=== PATIENT | male | born 1935 | race Caucasian/White ===

== ENCOUNTER 2017-06-24 18:16 | Emergency (ER) | payer MEDICARE, OTHER ==
[~2017-06-24] VITALS: Ht 170.2 cm; Wt 75.8 kg
[~2017-06-24 18:16] MED LIST: ACID1TAB15 PO; BISA10SU61 RC; CLOP75 PO; FAMO20 PO; FENO48TA15 PO; FENO54TA5 PO; FOLI1TAB15 PO; FURO20 PO; GUAI100L34 PO; LANTUS INSULIN SQ; METO25 PO; ONDA4 PO; [UNRECOGNIZED DRUG - OTHER]
[2017-06-24 18:47] LABS: GLUCOSE,POINT OF CARE 187 MG/DL (70-110)
[2017-06-24] MEDS ORDERED: MEMA5 PO (18:47)
[2017-06-24] MEDS ORDERED: INSU100V SQ (18:47)
[2017-06-24] MEDS ORDERED: PANT40TA PO (18:47)
[2017-06-24] MEDS ORDERED: LISI2.5T2 PO (18:47)
[2017-06-24] MEDS ORDERED: DIGO125T71 PO (18:47)
[2017-06-24] MEDS ORDERED: SODI15OR PO (18:47)
[2017-06-24] MEDS ORDERED: CARV3.1262 PO (18:47)
[2017-06-24] MEDS ORDERED: INSLAN SQ (18:47)
[2017-06-24] MEDS ORDERED: BUME0.5T11 PO (18:47)
[2017-06-24 19:27] LABS: BASOPHILS % (AUTO) 0.6 % (0.0-2.0); EOSINOPHILS % (AUTO) 5.7 % (1.0-6.0); HEMATOCRIT 38.5 % (41-53); HEMOGLOBIN 12.5 g/dL (13.5-17.5); LYMPHOCYTES # (AUTO) 1.5 K/uL (1.0-4.8); LYMPHOCYTES % (AUTO) 24.9 % (22.0-44.0); MEAN CORPUSCULAR HEMOGLOBIN 29.5 pg (26.0-34.0); MEAN CORPUSCULAR HGB CONC 32.6 G/dL (31.0-37.0); MEAN CORPUSCULAR VOLUME 91 fL (80-100); MONOCYTES # (AUTO) 0.8 K/uL (0.1-1.0); MONOCYTES % (AUTO) 13.2 % (2.0-9.0); NEUTROPHILS # (AUTO) 3.4 K/uL (1.8-7.7); NEUTROPHILS % (AUTO) 55.6 % (40.0-70.0); PLATELET COUNT (AUTO) 151 K/uL (150-450); RED BLOOD CELL COUNT(AUTO) 4.24 MIL/uL (4.50-5.90); RED CELL DISTRIBUTION WIDTH 16.2 % (11.5-14.5); WHITE BLOOD COUNT (AUTO) 6.1 K/uL (4.5-11.0)
[2017-06-24 19:33] LABS: ANION GAP 8 mmol/L (8-16); CALCIUM, TOTAL 8.5 mg/dL (8.8-10.5); CARBON DIOXIDE 25 mmol/L (22-29); CHLORIDE 104 mmol/L (98-107); CREATININE 2.19 mg/dL (0.60-1.30); GLOMERULAR FILTR. RATE CALC 29 mL/min (>60); POTASSIUM 5.9 mmol/L (3.5-5.1); SODIUM SERUM 137 mmol/L (136-145); UREA NITROGEN, BLOOD 57 mg/dL (7-18)
[2017-06-24 19:40] LABS: ALANINE AMINOTRANSFERASE 13 U/L (12-78); ASPARTATE AMINOTRANSFERASE 17 U/L (15-37); BILIRUBIN,TOTAL 0.5 mg/dL (0.1-1.0); CREATINE KINASE, TOTAL 30 U/L (39-308)
[2017-06-24 19:41] LABS: ALBUMIN 3.1 g/dL (3.4-5.0)
[2017-06-24 19:42] LABS: DIGOXIN < 0.20 ng/mL (0.90-2.00)
[2017-06-24 19:55] LABS: B-TYPE NATRIURETIC PEPTIDE 204 pg/mL (0-100)
[2017-06-24] MEDS ORDERED: TRIAMCINOLONE 0.1% 15 GM CREAM TP ONE (21:15)
[2017-06-24] MEDS ORDERED: DiphenhydrAMINE HCL 50 MG/ML VIAL IVP ONE (21:15)
[2017-06-24] MEDS ORDERED: SODIUM POLYSTYRENE SULFONATE 15 GM/60 ML SUSPENSION BOTTLE PO ONE (21:15)
[2017-06-24 23:01] LABS: APPEARANCE,URINE CLEAR (CLEAR); GLUCOSE, URINE (UA) NEGATIVE (NEGATIVE); KETONES,URINE NEGATIVE (NEGATIVE); LEUKOCYTE ESTERASE ,URINE NEGATIVE (NEGATIVE); OCCULT BLOOD,URINE NEGATIVE (NEGATIVE); PH,URINE 5.5 (5.0-8.0); PROTEIN,URINE POS 1+ (NEGATIVE)
[2017-06-24 23:04] LABS: ADD UA MICROSCOPIC NO
[2017-06-24 23:54] VITALS: BP 142/73
== END 2017-06-25 03:02 | disposition home or self-care (01) ==
LOC: EMS 18:17
DX: S00.03XA Contusion of scalp, initial encounter (principal); E11.65 Type 2 diabetes mellitus with hyperglycemia; E87.5 Hyperkalemia; I13.0 Hypertensive heart and chronic kidney disease with heart failure and stage 1 through stage 4 chronic kidney disease, or unspecified chronic kidney disease; E11.22 Type 2 diabetes mellitus with diabetic chronic kidney disease; N18.9 Chronic kidney disease, unspecified; I50.9 Heart failure, unspecified; I48.91 Unspecified atrial fibrillation; E78.00 Pure hypercholesterolemia, unspecified; Z79.4 Long term (current) use of insulin; Z86.73 Personal history of transient ischemic attack (TIA), and cerebral infarction without residual deficits; W18.30XA Fall on same level, unspecified, initial encounter; Y93.89 Activity, other specified; Y92.89 Other specified places as the place of occurrence of the external cause; Y99.8 Other external cause status
CPT/HCPCS: 70450; 82962; 93005; 99285; J1200

== ENCOUNTER 2017-07-30 17:47 | Inpatient (IN) | payer MEDICARE, OTHER ==
[~2017-07-30] VITALS: Ht 172.7 cm; Wt 85.0 kg
[~2017-07-30 17:47] MED LIST changes: -ACID1TAB15 PO; +BUME0.5T11 PO; +CARV3.1262 PO; -CLOP75 PO; +DIGO125T71 PO; -FAMO20 PO; -FENO48TA15 PO; -FENO54TA5 PO; -FOLI1TAB15 PO; -FURO20 PO; +INSLAN SQ; +INSU100V SQ; -LANTUS INSULIN SQ; +LISI2.5T2 PO; +MEMA5 PO; -METO25 PO; +PANT40TA PO; +SODI15OR PO; -[UNRECOGNIZED DRUG - OTHER]
[2017-07-30] MEDS ORDERED: ASCO500 PO (18:11)
[2017-07-30 18:46] LABS: EOSINOPHILS % (AUTO) 0.8 % (1.0-6.0); HEMATOCRIT 37.4 % (41-53); HEMOGLOBIN 12.2 g/dL (13.5-17.5); LYMPHOCYTES % (AUTO) 6.9 % (22.0-44.0); MEAN CORPUSCULAR HGB CONC 32.7 G/dL (31.0-37.0); MEAN CORPUSCULAR VOLUME 89 fL (80-100); MONOCYTES % (AUTO) 6.8 % (2.0-9.0); NEUTROPHILS # (AUTO) 12.6 K/uL (1.8-7.7); PLATELET COUNT (AUTO) 160 K/uL (150-450); RED BLOOD CELL COUNT(AUTO) 4.22 MIL/uL (4.50-5.90); RED CELL DISTRIBUTION WIDTH 16.6 % (11.5-14.5); WHITE BLOOD COUNT (AUTO) 14.7 K/uL (4.5-11.0)
[2017-07-30 18:49] LABS: NEUTROPHILS % (AUTO) 85.5 % (40.0-70.0)
[2017-07-30 18:59] LABS: ANION GAP 11 mmol/L (8-16); CALCIUM, TOTAL 8.8 mg/dL (8.8-10.5); CARBON DIOXIDE 21 mmol/L (22-29); CHLORIDE 101 mmol/L (98-107); CREATININE 2.79 mg/dL (0.60-1.30); GLOMERULAR FILTR. RATE CALC 22 mL/min (>60); SODIUM SERUM 133 mmol/L (136-145); UREA NITROGEN, BLOOD 87 mg/dL (7-18)
[2017-07-30 19:00] LABS: INR 1.5 (0.9-1.1)
[2017-07-30 19:06] LABS: ALANINE AMINOTRANSFERASE 15 U/L (12-78); ALBUMIN 2.6 g/dL (3.4-5.0); ASPARTATE AMINOTRANSFERASE 21 U/L (15-37); BILIRUBIN,TOTAL 1.2 mg/dL (0.1-1.0); CREATINE KINASE, TOTAL 43 U/L (39-308); DIGOXIN 0.35 ng/mL (0.90-2.00); TOTAL PROTEIN, SERUM 8.1 g/dL (6.4-8.2)
[2017-07-30 19:13] LABS: B-TYPE NATRIURETIC PEPTIDE 437 pg/mL (0-100)
[2017-07-30] MEDS ORDERED: SODIUM POLYSTYRENE SULFONATE 15 GM/60 ML SUSPENSION BOTTLE PO ONE (19:30)
[2017-07-30] MEDS ORDERED: INSULIN REGULAR, HUMAN 100 UNITS/ML IVP ONE (19:30)
[2017-07-30] MEDS ORDERED: ALBUTEROL SULFATE 2.5 MG/0.5 ML NEB SOLUTION NEB ONE (19:30)
[2017-07-30] MEDS ORDERED: SODIUM BICARBONATE [ADULT] 8.4% 50 MEQ/50 ML SYRINGE IVP ONE (19:30)
[2017-07-30 19:59] LABS: APPEARANCE,URINE CLEAR (CLEAR); GLUCOSE, URINE (UA) NEGATIVE (NEGATIVE); KETONES,URINE NEGATIVE (NEGATIVE); LEUKOCYTE ESTERASE ,URINE NEGATIVE (NEGATIVE); OCCULT BLOOD,URINE NEGATIVE (NEGATIVE); PROTEIN,URINE TRACE (NEGATIVE)
[2017-07-30 20:02] LABS: ADD UA MICROSCOPIC NO
[2017-07-30] MEDS ORDERED: 0.9% SODIUM CHLORIDE 5 ML NEB SOLUTION NEB ONE (20:36)
[2017-07-30] MEDS ORDERED: LEVOFLOXACIN 750 MG/D5% WATER 150 ML IV ONE (21:30)
[2017-07-30] MEDS ORDERED: VANCOMYCIN HCL 1 GM/D5% WATER 200 ML IV ONE (21:30)
[2017-07-30] MEDS ORDERED: DEXTROSE 50%-WATER 25 GM/50 ML SYRINGE IVP PRN (22:15)
[2017-07-30] MEDS ORDERED: ACETAMINOPHEN 325 MG TABLET PO PRN (22:15)
[2017-07-30] MEDS ORDERED: *CLINICAL-LEVOFLOXACIN IVPB DOSING CLINICAL ONE ×2 (22:15)
[2017-07-30] MEDS ORDERED: ALBUTEROL SULFATE 2.5 MG/0.5 ML NEB SOLUTION NEB PRN (22:15)
[2017-07-30] MEDS ORDERED: BISACODYL 10 MG RECTAL RECTAL SUPPOSITORY PR PRN (22:15)
[2017-07-30 22:52] VITALS: BP 128/60
[2017-07-30] MEDS ORDERED: PERMETHRIN 5% 60 GM CREAM TP ONE (23:00)
[2017-07-30] MEDS: OxyCODONE HCL/ACETAMINOPHEN 5-325 MG TABLET PO PRN (23:22)
[2017-07-30] MEDS ORDERED: VANCOMYCIN HCL 1 GM/D5% WATER 200 ML IV PRN (23:30)
[2017-07-31] MEDS ORDERED: SODIUM CHLORIDE 0.9% 250 ML IV ONE (02:58)
[2017-07-31] MEDS ORDERED: VANCOMYCIN HCL 500 MG in DEXTROSE 5%-WATER 100 ML IV ONE (03:00)
[2017-07-31 03:53] VITALS: BP 109/68
[2017-07-31 06:18] LABS: EOSINOPHILS % (AUTO) 0.4 % (1.0-6.0); HEMATOCRIT 36.3 % (41-53); HEMOGLOBIN 11.7 g/dL (13.5-17.5); LYMPHOCYTES # (AUTO) 0.8 K/uL (1.0-4.8); LYMPHOCYTES % (AUTO) 5.7 % (22.0-44.0); MEAN CORPUSCULAR HEMOGLOBIN 28.8 pg (26.0-34.0); MEAN CORPUSCULAR HGB CONC 32.3 G/dL (31.0-37.0); MEAN CORPUSCULAR VOLUME 89 fL (80-100); MONOCYTES % (AUTO) 7.3 % (2.0-9.0); NEUTROPHILS # (AUTO) 11.5 K/uL (1.8-7.7); PLATELET COUNT (AUTO) 163 K/uL (150-450); RED BLOOD CELL COUNT(AUTO) 4.06 MIL/uL (4.50-5.90); RED CELL DISTRIBUTION WIDTH 16.7 % (11.5-14.5); WHITE BLOOD COUNT (AUTO) 13.3 K/uL (4.5-11.0)
[2017-07-31 06:21] LABS: CALCIUM, TOTAL 8.5 mg/dL (8.8-10.5); CREATININE 2.95 mg/dL (0.60-1.30); POTASSIUM 5.6 mmol/L (3.5-5.1)
[2017-07-31] MEDS: INSULIN ASPART 100 UNITS/ML SQ PRN ×4 (06:30→21:00)
[2017-07-31 07:01] LABS: NEUTROPHILS % (AUTO) 86.6 % (40.0-70.0)
[2017-07-31 07:02] LABS: GLUCOSE COMMENT 1 Received Meds; GLUCOSE,POINT OF CARE 363 MG/DL (70-110)
[2017-07-31 07:38] VITALS: BP 133/80
[2017-07-31 08:29] LABS: RBC MORPHOLOGY COMMENT NORMAL RBC MORPH
[2017-07-31] MEDS: VITAMIN B COMP/VIT C/FOLIC ACID CAPSULE PO SCH (08:33)
[2017-07-31] MEDS: ASPIRIN 81 MG CHEWABLE TABLET PO SCH (08:33)
[2017-07-31] MEDS: DOCUSATE SODIUM 100 MG CAPSULE PO SCH ×2 (08:33→20:55)
[2017-07-31] MEDS: PANTOPRAZOLE SODIUM 40 MG DR TABLET PO SCH (08:33)
[2017-07-31] MEDS: MEMANTINE HCL 5 MG TABLET PO SCH ×2 (08:33→20:56)
[2017-07-31] MEDS: DIGOXIN 125 MCG TABLET PO SCH (08:33)
[2017-07-31] MEDS: HEPARIN SODIUM,PORCINE 5,000 UNITS/ML VIAL SQ SCH ×2 (08:34→20:55)
[2017-07-31] MEDS: OxyCODONE HCL/ACETAMINOPHEN 5-325 MG TABLET PO PRN (08:34)
[2017-07-31] MEDS ORDERED: SODIUM POLYSTYRENE SULFONATE 15 GM/60 ML SUSPENSION BOTTLE PR ONE (10:45)
[2017-07-31 11:02] VITALS: BP 119/65
[2017-07-31] MEDS ORDERED: SODIUM CHLORIDE 0.9% 1,000 ML IV ONE (13:15)
[2017-07-31 14:40] VITALS: BP 116/59
[2017-07-31 20:45] VITALS: BP 135/90
[2017-07-31] MEDS: ATORVASTATIN CALCIUM 20 MG TABLET PO SCH (20:55)
[2017-07-31] MEDS: CARVEDILOL 3.125 MG TABLET PO SCH (20:56)
[2017-08-01 00:59] VITALS: BP 134/55
[2017-08-01 04:37] VITALS: BP 134/80
[2017-08-01] MEDS: INSULIN ASPART 100 UNITS/ML SQ PRN ×4 (05:55→20:48)
[2017-08-01] MEDS: OxyCODONE HCL/ACETAMINOPHEN 5-325 MG TABLET PO PRN ×4 (05:58→23:29)
[2017-08-01 07:06] LABS: CALCIUM, TOTAL 8.5 mg/dL (8.8-10.5); CREATININE 2.54 mg/dL (0.60-1.30); PHOSPHORUS 4.1 mg/dL (2.5-4.9); POTASSIUM 4.1 mmol/L (3.5-5.1)
[2017-08-01 07:57] VITALS: BP 113/65
[2017-08-01] MEDS: DOCUSATE SODIUM 100 MG CAPSULE PO SCH ×2 (08:18→20:47)
[2017-08-01] MEDS: PANTOPRAZOLE SODIUM 40 MG DR TABLET PO SCH (08:19)
[2017-08-01] MEDS: VITAMIN B COMP/VIT C/FOLIC ACID CAPSULE PO SCH (08:19)
[2017-08-01] MEDS: MEMANTINE HCL 5 MG TABLET PO SCH ×2 (08:19→20:47)
[2017-08-01] MEDS: CARVEDILOL 3.125 MG TABLET PO SCH ×2 (08:19→20:47)
[2017-08-01] MEDS: DIGOXIN 125 MCG TABLET PO SCH (08:19)
[2017-08-01] MEDS: HEPARIN SODIUM,PORCINE 5,000 UNITS/ML VIAL SQ SCH ×2 (09:00→20:34)
[2017-08-01] MEDS ORDERED: SODIUM CHLORIDE 0.9% 500 ML IV ONE (09:45)
[2017-08-01] MEDS ORDERED: ERGOCALCIFEROL (VIT D2) 50,000 UNITS CAPSULE PO SCH (10:00)
[2017-08-01] MEDS: IRON SUCROSE COMPLEX 100 MG in SODIUM CHLORIDE 0.9% 100 ML IV SCH (10:31)
[2017-08-01 11:37] VITALS: BP 119/79
[2017-08-01] MEDS: ASPIRIN 81 MG CHEWABLE TABLET PO SCH (12:29)
[2017-08-01] MEDS: TAMSULOSIN HCL 0.4 MG CAPSULE PO SCH ×4 (12:32→21:00)
[2017-08-01 14:43] LABS: GLUCOSE COMMENT 1 Received Meds; GLUCOSE,POINT OF CARE 223 MG/DL (70-110)
[2017-08-01 14:43] LABS: GLUCOSE,POINT OF CARE 256 MG/DL (70-110)
[2017-08-01 14:44] LABS: GLUCOSE COMMENT 1 Post Meal; GLUCOSE COMMENT 2 Stat Lab Glu Request; GLUCOSE,POINT OF CARE 236 MG/DL (70-110)
[2017-08-01 14:44] LABS: GLUCOSE COMMENT 1 Received Meds; GLUCOSE,POINT OF CARE 192 MG/DL (70-110)
[2017-08-01 14:44] LABS: GLUCOSE COMMENT 1 Received Meds; GLUCOSE,POINT OF CARE 227 MG/DL (70-110)
[2017-08-01 15:48] VITALS: BP 128/64
[2017-08-01 16:53] LABS: APPEARANCE,UNSPUN,BODY FLUID CLOUDY (CLEAR); COLOR,BODY FLUID YELLOW (LT YELLOW)
[2017-08-01 16:54] LABS: OTHER CELLS,BODY FLUID 4
[2017-08-01 16:55] LABS: PH, BODY FLUID 8
[2017-08-01] MEDS ORDERED: FINASTERIDE 5 MG TABLET PO ONE (17:45)
[2017-08-01 19:59] VITALS: BP 121/66
[2017-08-01] MEDS: MUPIROCIN CALCIUM 2% 22 GM OINTMENT NASAL SCH (20:47)
[2017-08-01] MEDS: ATORVASTATIN CALCIUM 20 MG TABLET PO SCH (20:47)
[2017-08-01] MEDS ORDERED: SODIUM CHLORIDE 0.9% 250 ML IV ONE (21:03)
[2017-08-01] MEDS ORDERED: LEVOFLOXACIN 750 MG/D5% WATER 150 ML IV SCH (22:00)
[2017-08-02] VITALS (7 sets, daily range): BP systolic 108–134; BP diastolic 53–84
[2017-08-02 05:16] LABS: BASOPHILS # (AUTO) 0.02 K/uL (0.00-0.20); BASOPHILS % (AUTO) 0.3 % (0.0-2.0); EOSINOPHILS # (AUTO) 0.18 K/uL (0.00-0.70); EOSINOPHILS % (AUTO) 2.09 % (1.0-6.0); HEMATOCRIT 35.2 % (41-53); HEMOGLOBIN 11.5 g/dL (13.5-17.5); LYMPHOCYTES # (AUTO) 0.9 K/uL (1.0-4.8); LYMPHOCYTES % (AUTO) 10.4 % (22.0-44.0); MEAN CORPUSCULAR HEMOGLOBIN 28.8 pg (26.0-34.0); MEAN CORPUSCULAR HGB CONC 32.6 G/dL (31.0-37.0); MEAN CORPUSCULAR VOLUME 88 fL (80-100); MONOCYTES # (AUTO) 0.8 K/uL (0.1-1.0); MONOCYTES % (AUTO) 9.2 % (2.0-9.0); NEUTROPHILS # (AUTO) 6.7 K/uL (1.8-7.7); PLATELET COUNT (AUTO) 153 K/uL (150-450); RED BLOOD CELL COUNT(AUTO) 3.98 MIL/uL (4.50-5.90); RED CELL DISTRIBUTION WIDTH 16.7 % (11.5-14.5); WHITE BLOOD COUNT (AUTO) 8.6 K/uL (4.5-11.0)
[2017-08-02 05:31] LABS: CALCIUM, TOTAL 8.1 mg/dL (8.8-10.5); CREATININE 2.3 mg/dL (0.60-1.30); DIGOXIN 0.71 ng/mL (0.90-2.00)
[2017-08-02] MEDS: INSULIN ASPART 100 UNITS/ML SQ PRN ×3 (06:40→22:21)
[2017-08-02 07:43] LABS: GLUCOSE COMMENT 1 Received Meds; GLUCOSE,POINT OF CARE 223 MG/DL (70-110)
[2017-08-02 07:43] LABS: GLUCOSE COMMENT 1 Received Meds; GLUCOSE,POINT OF CARE 197 MG/DL (70-110)
[2017-08-02 07:43] LABS: GLUCOSE COMMENT 1 Received Meds; GLUCOSE,POINT OF CARE 244 MG/DL (70-110)
[2017-08-02] MEDS: MUPIROCIN CALCIUM 2% 22 GM OINTMENT NASAL SCH ×2 (08:00→20:29)
[2017-08-02] MEDS: DOCUSATE SODIUM 100 MG CAPSULE PO SCH ×2 (08:00→20:29)
[2017-08-02] MEDS: VANCOMYCIN HCL 750 MG in DEXTROSE 5%-WATER 150 ML IV SCH (08:00)
[2017-08-02] MEDS: ASPIRIN 81 MG CHEWABLE TABLET PO SCH (08:00)
[2017-08-02] MEDS: MEMANTINE HCL 5 MG TABLET PO SCH ×2 (08:01→20:29)
[2017-08-02] MEDS: PANTOPRAZOLE SODIUM 40 MG DR TABLET PO SCH (08:01)
[2017-08-02] MEDS: OxyCODONE HCL/ACETAMINOPHEN 5-325 MG TABLET PO PRN ×4 (08:01→22:23)
[2017-08-02] MEDS: VITAMIN B COMP/VIT C/FOLIC ACID CAPSULE PO SCH (08:01)
[2017-08-02] MEDS: TAMSULOSIN HCL 0.4 MG CAPSULE PO SCH ×3 (08:02→21:00)
[2017-08-02] MEDS: HEPARIN SODIUM,PORCINE 5,000 UNITS/ML VIAL SQ SCH ×2 (08:02→20:25)
[2017-08-02] MEDS: CARVEDILOL 3.125 MG TABLET PO SCH ×2 (08:02→21:00)
[2017-08-02 14:23] LABS: TOTAL PROTEIN,BODY FLUID,REF 2.8 g/dL
[2017-08-02 14:28] LABS: GLUCOSE COMMENT 1 Received Meds; GLUCOSE,POINT OF CARE 339 MG/DL (70-110)
[2017-08-02] MEDS: IRON SUCROSE COMPLEX 100 MG in SODIUM CHLORIDE 0.9% 100 ML IV SCH (14:43)
[2017-08-02] MEDS: ATORVASTATIN CALCIUM 20 MG TABLET PO SCH (20:29)
[2017-08-03 01:02] LABS: GLUCOSE COMMENT 1 Received Meds; GLUCOSE,POINT OF CARE 272 MG/DL (70-110)
[2017-08-03] MEDS: OxyCODONE HCL/ACETAMINOPHEN 5-325 MG TABLET PO PRN ×4 (04:24→23:45)
[2017-08-03 04:27] VITALS: BP 122/76
[2017-08-03 06:15] LABS: BASOPHILS % (AUTO) 0.2 % (0.0-2.0); EOSINOPHILS % (AUTO) 3.2 % (1.0-6.0); HEMATOCRIT 35.9 % (41-53); HEMOGLOBIN 11.7 g/dL (13.5-17.5); LYMPHOCYTES % (AUTO) 10.3 % (22.0-44.0); MEAN CORPUSCULAR HEMOGLOBIN 28.8 pg (26.0-34.0); MEAN CORPUSCULAR HGB CONC 32.4 G/dL (31.0-37.0); MEAN CORPUSCULAR VOLUME 89 fL (80-100); MONOCYTES % (AUTO) 10.9 % (2.0-9.0); NEUTROPHILS % (AUTO) 75.4 % (40.0-70.0); PLATELET COUNT (AUTO) 166 K/uL (150-450); RED BLOOD CELL COUNT(AUTO) 4.05 MIL/uL (4.50-5.90); RED CELL DISTRIBUTION WIDTH 16.7 % (11.5-14.5); WHITE BLOOD COUNT (AUTO) 9.3 K/uL (4.5-11.0)
[2017-08-03 07:10] LABS: ALBUMIN 2.2 g/dL (3.4-5.0); BILIRUBIN,TOTAL 1.1 mg/dL (0.1-1.0); CALCIUM, TOTAL 8.5 mg/dL (8.8-10.5); CREATININE 2.66 mg/dL (0.60-1.30); MAGNESIUM 1.8 mg/dL (1.80-2.40); POTASSIUM 3.9 mmol/L (3.5-5.1); TOTAL PROTEIN, SERUM 7.6 g/dL (6.4-8.2)
[2017-08-03 07:33] LABS: GLUCOSE COMMENT 1 Received Meds; GLUCOSE,POINT OF CARE 279 MG/DL (70-110)
[2017-08-03] MEDS: PANTOPRAZOLE SODIUM 40 MG DR TABLET PO SCH (07:49)
[2017-08-03] MEDS: DOCUSATE SODIUM 100 MG CAPSULE PO SCH ×2 (07:49→20:21)
[2017-08-03] MEDS: MUPIROCIN CALCIUM 2% 22 GM OINTMENT NASAL SCH ×2 (07:49→20:19)
[2017-08-03] MEDS: VITAMIN B COMP/VIT C/FOLIC ACID CAPSULE PO SCH (07:49)
[2017-08-03] MEDS: MEMANTINE HCL 5 MG TABLET PO SCH ×2 (07:50→20:19)
[2017-08-03] MEDS: TAMSULOSIN HCL 0.4 MG CAPSULE PO SCH ×3 (07:50→20:19)
[2017-08-03] MEDS: CARVEDILOL 3.125 MG TABLET PO SCH ×2 (07:50→20:19)
[2017-08-03] MEDS: IRON SUCROSE COMPLEX 100 MG in SODIUM CHLORIDE 0.9% 100 ML IV SCH (07:51)
[2017-08-03] MEDS: HEPARIN SODIUM,PORCINE 5,000 UNITS/ML VIAL SQ SCH ×2 (07:51→20:17)
[2017-08-03 09:06] VITALS: BP 116/54
[2017-08-03] MEDS: VANCOMYCIN HCL 750 MG in DEXTROSE 5%-WATER 150 ML IV SCH (10:16)
[2017-08-03 11:30] VITALS: BP 126/59
[2017-08-03] MEDS: LIDOCAINE HCL 5% TRANSDERMAL PATCH TD SCH (15:10)
[2017-08-03 15:44] VITALS: BP 124/66
[2017-08-03] MEDS: INSULIN ASPART 100 UNITS/ML SQ PRN ×2 (18:51→20:44)
[2017-08-03 20:06] VITALS: BP 131/81
[2017-08-03] MEDS: ATORVASTATIN CALCIUM 20 MG TABLET PO SCH (20:19)
[2017-08-03] MEDS: -LIDODERM PATCH NOTE- MISC SCH ×2 (20:20)
[2017-08-03 23:29] VITALS: BP 124/73
[2017-08-04 04:52] VITALS: BP 117/63
[2017-08-04 05:08] LABS: GLUCOSE,POINT OF CARE 124 MG/DL (70-110)
[2017-08-04 05:08] LABS: GLUCOSE COMMENT 1 Received Meds; GLUCOSE,POINT OF CARE 263 MG/DL (70-110)
[2017-08-04 05:08] LABS: GLUCOSE COMMENT 1 Received Meds; GLUCOSE,POINT OF CARE 302 MG/DL (70-110)
[2017-08-04 05:19] LABS: GLUCOSE COMMENT 1 Received Meds; GLUCOSE,POINT OF CARE 323 MG/DL (70-110)
[2017-08-04] MEDS: OxyCODONE HCL/ACETAMINOPHEN 5-325 MG TABLET PO PRN ×2 (06:44→23:12)
[2017-08-04] MEDS: INSULIN ASPART 100 UNITS/ML SQ PRN ×3 (06:44→21:32)
[2017-08-04 07:28] LABS: ALBUMIN 2.1 g/dL (3.4-5.0); BILIRUBIN,TOTAL 1.2 mg/dL (0.1-1.0); CALCIUM, TOTAL 8.3 mg/dL (8.8-10.5); CREATININE 3.04 mg/dL (0.60-1.30); MAGNESIUM 1.7 mg/dL (1.80-2.40); POTASSIUM 4.1 mmol/L (3.5-5.1); TOTAL PROTEIN, SERUM 7.2 g/dL (6.4-8.2)
[2017-08-04 07:30] VITALS: BP 140/98
[2017-08-04] MEDS: VANCOMYCIN HCL 750 MG in DEXTROSE 5%-WATER 150 ML IV SCH (08:34)
[2017-08-04] MEDS: DOCUSATE SODIUM 100 MG CAPSULE PO SCH ×2 (08:39→21:17)
[2017-08-04] MEDS: MUPIROCIN CALCIUM 2% 22 GM OINTMENT NASAL SCH ×2 (08:39→21:17)
[2017-08-04] MEDS: HEPARIN SODIUM,PORCINE 5,000 UNITS/ML VIAL SQ SCH ×2 (08:40→21:18)
[2017-08-04] MEDS: TAMSULOSIN HCL 0.4 MG CAPSULE PO SCH ×3 (08:40→21:17)
[2017-08-04] MEDS: LIDOCAINE HCL 5% TRANSDERMAL PATCH TD SCH (08:40)
[2017-08-04] MEDS: VITAMIN B COMP/VIT C/FOLIC ACID CAPSULE PO SCH (08:40)
[2017-08-04] MEDS: PANTOPRAZOLE SODIUM 40 MG DR TABLET PO SCH (08:40)
[2017-08-04] MEDS: CARVEDILOL 3.125 MG TABLET PO SCH ×2 (08:41→21:17)
[2017-08-04] MEDS: MEMANTINE HCL 5 MG TABLET PO SCH ×2 (08:41→21:18)
[2017-08-04] MEDS: DIGOXIN 125 MCG TABLET PO SCH (08:41)
[2017-08-04 08:42] LABS: BASOPHILS % (AUTO) 0.3 % (0.0-2.0); EOSINOPHILS % (AUTO) 2.1 % (1.0-6.0); LYMPHOCYTES % (AUTO) 11.2 % (22.0-44.0); MEAN CORPUSCULAR HEMOGLOBIN 28.5 pg (26.0-34.0); MEAN CORPUSCULAR HGB CONC 32.4 G/dL (31.0-37.0); MEAN CORPUSCULAR VOLUME 88 fL (80-100); MONOCYTES % (AUTO) 11.9 % (2.0-9.0); NEUTROPHILS # (AUTO) 6.4 K/uL (1.8-7.7); NEUTROPHILS % (AUTO) 74.5 % (40.0-70.0); PLATELET COUNT (AUTO) 151 K/uL (150-450); RED BLOOD CELL COUNT(AUTO) 3.87 MIL/uL (4.50-5.90); RED CELL DISTRIBUTION WIDTH 16.9 % (11.5-14.5); WHITE BLOOD COUNT (AUTO) 8.6 K/uL (4.5-11.0)
[2017-08-04] MEDS: IRON SUCROSE COMPLEX 100 MG in SODIUM CHLORIDE 0.9% 100 ML IV SCH (11:29)
[2017-08-04 11:54] VITALS: BP 116/58
[2017-08-04] MEDS: SODIUM CHLORIDE 0.9% 1,000 ML IV SCH (12:15)
[2017-08-04 15:31] VITALS: BP 112/68
[2017-08-04 20:16] VITALS: BP 137/64
[2017-08-04] MEDS: ATORVASTATIN CALCIUM 20 MG TABLET PO SCH (21:18)
[2017-08-04] MEDS: -LIDODERM PATCH NOTE- MISC SCH ×2 (21:33)
[2017-08-04 23:49] VITALS: BP 123/71
[2017-08-05 03:52] LABS: GLUCOSE,POINT OF CARE 142 MG/DL (70-110)
[2017-08-05 03:53] LABS: GLUCOSE,POINT OF CARE 212 MG/DL (70-110)
[2017-08-05 03:53] LABS: GLUCOSE COMMENT 1 Received Meds; GLUCOSE,POINT OF CARE 176 MG/DL (70-110)
[2017-08-05 03:53] LABS: GLUCOSE COMMENT 1 Received Meds; GLUCOSE,POINT OF CARE 218 MG/DL (70-110)
[2017-08-05] MEDS: SODIUM CHLORIDE 0.9% 1,000 ML IV SCH (04:27)
[2017-08-05 05:36] VITALS: BP 120/70
[2017-08-05 06:38] LABS: GLUCOSE,POINT OF CARE 133 MG/DL (70-110)
[2017-08-05 07:16] LABS: CREATININE 3.92 mg/dL (0.60-1.30); POTASSIUM 4.3 mmol/L (3.5-5.1)
[2017-08-05 08:02] VITALS: BP 126/67
[2017-08-05] MEDS: HEPARIN SODIUM,PORCINE 5,000 UNITS/ML VIAL SQ SCH ×2 (09:00→20:17)
[2017-08-05] MEDS: TAMSULOSIN HCL 0.4 MG CAPSULE PO SCH ×3 (09:28→21:00)
[2017-08-05] MEDS: DOCUSATE SODIUM 100 MG CAPSULE PO SCH ×2 (09:28→20:16)
[2017-08-05] MEDS: CARVEDILOL 3.125 MG TABLET PO SCH ×2 (09:28→20:16)
[2017-08-05] MEDS: VITAMIN B COMP/VIT C/FOLIC ACID CAPSULE PO SCH (09:28)
[2017-08-05] MEDS: PANTOPRAZOLE SODIUM 40 MG DR TABLET PO SCH (09:28)
[2017-08-05] MEDS: MEMANTINE HCL 5 MG TABLET PO SCH ×2 (09:29→20:16)
[2017-08-05] MEDS: LIDOCAINE HCL 5% TRANSDERMAL PATCH TD SCH (09:30)
[2017-08-05] MEDS: MUPIROCIN CALCIUM 2% 22 GM OINTMENT NASAL SCH ×2 (09:31→20:17)
[2017-08-05] MEDS: VANCOMYCIN HCL 750 MG in DEXTROSE 5%-WATER 150 ML IV SCH (09:32)
[2017-08-05 11:40] VITALS: BP 114/61
[2017-08-05] MEDS: IRON SUCROSE COMPLEX 100 MG in SODIUM CHLORIDE 0.9% 100 ML IV SCH (11:43)
[2017-08-05] MEDS: INSULIN ASPART 100 UNITS/ML SQ PRN ×3 (12:45→20:54)
[2017-08-05 15:54] VITALS: BP 117/64
[2017-08-05] MEDS: BUMETANIDE 0.25 MG/ML 10 ML VIAL IVP SCH ×2 (17:14→20:18)
[2017-08-05 19:30] VITALS: BP 125/54
[2017-08-05] MEDS: OxyCODONE HCL/ACETAMINOPHEN 5-325 MG TABLET PO PRN (19:48)
[2017-08-05] MEDS: ATORVASTATIN CALCIUM 20 MG TABLET PO SCH (20:16)
[2017-08-05] MEDS: -LIDODERM PATCH NOTE- MISC SCH ×2 (20:57)
[2017-08-05 23:36] VITALS: BP 132/67
[2017-08-06 04:42] LABS: GLUCOSE COMMENT 1 Received Meds; GLUCOSE,POINT OF CARE 271 MG/DL (70-110)
[2017-08-06 04:42] LABS: GLUCOSE COMMENT 1 Received Meds; GLUCOSE,POINT OF CARE 266 MG/DL (70-110)
[2017-08-06 04:43] LABS: GLUCOSE COMMENT 1 Received Meds; GLUCOSE,POINT OF CARE 225 MG/DL (70-110)
[2017-08-06 05:11] VITALS: BP 121/65
[2017-08-06 06:05] LABS: INR 1.4 (0.9-1.1); PROTHROMBIN TIME 15.1 SEC (9.4-11.6)
[2017-08-06 06:26] LABS: TOTAL PROTEIN URINE 28.5 mg/dL (Not Estab.)
[2017-08-06 06:48] LABS: ALBUMIN 2.2 g/dL (3.4-5.0); BILIRUBIN,TOTAL 1.3 mg/dL (0.1-1.0); CALCIUM, TOTAL 8.1 mg/dL (8.8-10.5); CREATININE 4.59 mg/dL (0.60-1.30); POTASSIUM 4.4 mmol/L (3.5-5.1); TOTAL PROTEIN, SERUM 7.7 g/dL (6.4-8.2)
[2017-08-06 07:46] VITALS: BP 113/58
[2017-08-06] MEDS: TAMSULOSIN HCL 0.4 MG CAPSULE PO SCH ×2 (09:00→21:29)
[2017-08-06] MEDS: CARVEDILOL 3.125 MG TABLET PO SCH ×2 (09:00→21:29)
[2017-08-06] MEDS: MUPIROCIN CALCIUM 2% 22 GM OINTMENT NASAL SCH ×2 (09:00→21:30)
[2017-08-06] MEDS: MEMANTINE HCL 5 MG TABLET PO SCH ×2 (09:00→21:30)
[2017-08-06] MEDS: DOCUSATE SODIUM 100 MG CAPSULE PO SCH ×2 (09:00→21:30)
[2017-08-06] MEDS: BUMETANIDE 0.25 MG/ML 10 ML VIAL IVP SCH ×4 (09:00→21:31)
[2017-08-06] MEDS: VANCOMYCIN HCL 750 MG in DEXTROSE 5%-WATER 150 ML IV SCH (09:04)
[2017-08-06] MEDS ORDERED: HEPARIN SODIUM,PORCINE 1,000 UNITS/ML 10 ML VIAL ONE (09:44)
[2017-08-06] MEDS ORDERED: LIDOCAINE HCL/PF 1% 30 ML VIAL ONE (09:44)
[2017-08-06] MEDS ORDERED: HEPARIN SODIUM 1000 UNITS/NS 500 ML ONE (09:44)
[2017-08-06] MEDS ORDERED: VANCOMYCIN HCL 1 GM/D5% WATER 200 ML IV PRN (10:30)
[2017-08-06] MEDS ORDERED: DESMOPRESSIN ACETATE 20 MCG in SODIUM CHLORIDE 0.9% 50 ML IV ONE (11:45)
[2017-08-06 11:57] LABS: GLUCOSE,POINT OF CARE 131 MG/DL (70-110)
[2017-08-06 12:09] VITALS: BP 128/71
[2017-08-06] MEDS ORDERED: ALBUMIN HUMAN 25%-12.5GM/50ML IV BOTTLE ONE (12:10)
[2017-08-06] MEDS ORDERED: HEPARIN SODIUM,PORCINE 1,000 UNITS/ML VIAL ONE (12:10)
[2017-08-06] MEDS ORDERED: SODIUM CHLORIDE 0.9% 50 ML ONE (12:34)
[2017-08-06 15:20] VITALS: BP 117/61
[2017-08-06] MEDS: LIDOCAINE HCL 5% TRANSDERMAL PATCH TD SCH (15:26)
[2017-08-06] MEDS: IRON SUCROSE COMPLEX 100 MG in SODIUM CHLORIDE 0.9% 100 ML IV SCH (17:15)
[2017-08-06] MEDS: VITAMIN B COMP/VIT C/FOLIC ACID CAPSULE PO SCH (17:30)
[2017-08-06] MEDS: PANTOPRAZOLE SODIUM 40 MG DR TABLET PO SCH (17:30)
[2017-08-06] MEDS: INSULIN ASPART 100 UNITS/ML SQ PRN ×2 (18:10→21:29)
[2017-08-06 19:48] VITALS: BP 132/58
[2017-08-06] MEDS: ATORVASTATIN CALCIUM 20 MG TABLET PO SCH (21:29)
[2017-08-06] MEDS: -LIDODERM PATCH NOTE- MISC SCH ×2 (21:42)
[2017-08-07 00:04] VITALS: BP 115/63
[2017-08-07 04:12] VITALS: BP 126/57
[2017-08-07] MEDS: INSULIN ASPART 100 UNITS/ML SQ PRN ×2 (06:06→12:20)
[2017-08-07 06:28] LABS: GLUCOSE,POINT OF CARE 178 MG/DL (70-110)
[2017-08-07 06:28] LABS: GLUCOSE COMMENT 1 Received Meds; GLUCOSE,POINT OF CARE 195 MG/DL (70-110)
[2017-08-07 06:28] LABS: GLUCOSE COMMENT 1 Received Meds; GLUCOSE,POINT OF CARE 154 MG/DL (70-110)
[2017-08-07 06:28] LABS: GLUCOSE,POINT OF CARE 186 MG/DL (70-110)
[2017-08-07 06:47] LABS: CREATININE 4.28 mg/dL (0.60-1.30); POTASSIUM 4.4 mmol/L (3.5-5.1)
[2017-08-07 08:07] VITALS: BP 125/87
[2017-08-07] MEDS: DOCUSATE SODIUM 100 MG CAPSULE PO SCH ×2 (08:21→20:57)
[2017-08-07] MEDS: IRON SUCROSE COMPLEX 100 MG in SODIUM CHLORIDE 0.9% 100 ML IV SCH (08:21)
[2017-08-07] MEDS: TAMSULOSIN HCL 0.4 MG CAPSULE PO SCH ×2 (08:21→20:58)
[2017-08-07] MEDS: MUPIROCIN CALCIUM 2% 22 GM OINTMENT NASAL SCH ×2 (08:21→21:06)
[2017-08-07] MEDS: LIDOCAINE HCL 5% TRANSDERMAL PATCH TD SCH (08:22)
[2017-08-07] MEDS: PANTOPRAZOLE SODIUM 40 MG DR TABLET PO SCH (08:22)
[2017-08-07] MEDS: MEMANTINE HCL 5 MG TABLET PO SCH ×2 (08:22→20:57)
[2017-08-07] MEDS: VITAMIN B COMP/VIT C/FOLIC ACID CAPSULE PO SCH (09:00)
[2017-08-07] MEDS: CARVEDILOL 3.125 MG TABLET PO SCH ×2 (09:00→20:57)
[2017-08-07] MEDS: BUMETANIDE 0.25 MG/ML 10 ML VIAL IVP SCH ×3 (09:00→20:58)
[2017-08-07] MEDS ORDERED: POLYETHYLENE GLYCOL 3350 17 GM PACKET PO PRN (09:45)
[2017-08-07] MEDS ORDERED: ATOR20TA86 PO (10:01)
[2017-08-07] MEDS ORDERED: BUME1TAB17 PO (10:02)
[2017-08-07] MEDS ORDERED: DIGO125T PO (10:03)
[2017-08-07] MEDS ORDERED: BUME1TAB17 IV (10:03)
[2017-08-07] MEDS ORDERED: DSS100 PO (10:04)
[2017-08-07] MEDS ORDERED: ERGO500014 PO (10:07)
[2017-08-07] MEDS ORDERED: FERRHI IV (10:08)
[2017-08-07] MEDS ORDERED: LIDO700A15 TD (10:09)
[2017-08-07] MEDS ORDERED: TAMS0.4C32 PO (10:10)
[2017-08-07] MEDS ORDERED: MUPI15CR TP (10:10)
[2017-08-07] MEDS ORDERED: ACET-784 PO (10:11)
[2017-08-07] MEDS ORDERED: FOLI1CAP2 PO (10:11)
[2017-08-07] MEDS ORDERED: AUD NEB (10:19)
[2017-08-07] MEDS ORDERED: BISA10S PR (10:21)
[2017-08-07] MEDS ORDERED: INSNOV SQ (10:21)
[2017-08-07] MEDS ORDERED: MIRALAX PO (10:22)
[2017-08-07] MEDS ORDERED: PERCT PO (10:22)
[2017-08-07] MEDS ORDERED: VANC1PLA9 IVPB (10:33)
[2017-08-07] MEDS ORDERED: ALBUMIN HUMAN 25%-12.5GM/50ML 50 ML IV PRN (11:00)
[2017-08-07 11:05] VITALS: BP 126/58
[2017-08-07] MEDS: DIGOXIN 125 MCG TABLET PO SCH (11:06)
[2017-08-07 15:38] VITALS: BP 147/76
[2017-08-07] MEDS ORDERED: SODIUM CHLORIDE 0.9% 1,000 ML IV ONE (16:44)
[2017-08-07] MEDS ORDERED: MANNITOL 25%-12.5 GM/50 ML VIAL IVP PRN (17:30)
[2017-08-07] MEDS ORDERED: HEPARIN SODIUM,PORCINE 1,000 UNITS/ML VIAL IVP ONE ×4 (17:30→22:29)
[2017-08-07] MEDS ORDERED: ALBUMIN HUMAN 25%-12.5GM/50ML IV BOTTLE IV PRN (17:30)
[2017-08-07 20:15] VITALS: BP 113/62
[2017-08-07] MEDS: ATORVASTATIN CALCIUM 20 MG TABLET PO SCH (20:57)
[2017-08-07] MEDS ORDERED: ALBUMIN HUMAN 25%-12.5GM/50ML IV BOTTLE IV ONE ×2 (22:29)
[2017-08-08 20:14] LABS: GLUCOSE,POINT OF CARE 150 MG/DL (70-110)
[2017-08-08 20:37] LABS: GLUCOSE COMMENT 1 Received Meds; GLUCOSE,POINT OF CARE 251 MG/DL (70-110)
[2017-08-08 20:37] LABS: GLUCOSE,POINT OF CARE 201 MG/DL (70-110)
== END 2017-08-07 22:30 | DRG 177 ==
LOC: EMS 17:52 → 5S 21:23
PROVIDERS: ADMIT Internal Medicine; ATTEND Internal Medicine
PROC: 0W993ZZ Drainage of Right Pleural Cavity, Percutaneous Approach (ICD-10-PCS; principal; 2017-08-01)
PROC: 05H533Z Insertion of Infusion Device into Right Subclavian Vein, Percutaneous Approach (ICD-10-PCS; 2017-08-06)
PROC: B546ZZA Ultrasonography of Right Subclavian Vein, Guidance (ICD-10-PCS; 2017-08-06)
PROC: 02HV33Z Insertion of Infusion Device into Superior Vena Cava, Percutaneous Approach (ICD-10-PCS; 2017-08-06)
DX: J69.0 Pneumonitis due to inhalation of food and vomit (principal); E43 Unspecified severe protein-calorie malnutrition; N17.9 Acute kidney failure, unspecified; I50.43 Acute on chronic combined systolic (congestive) and diastolic (congestive) heart failure; E11.21 Type 2 diabetes mellitus with diabetic nephropathy; J90 Pleural effusion, not elsewhere classified; N18.6 End stage renal disease; I48.0 Paroxysmal atrial fibrillation; L03.115 Cellulitis of right lower limb; E11.51 Type 2 diabetes mellitus with diabetic peripheral angiopathy without gangrene; N13.8 Other obstructive and reflux uropathy; L03.116 Cellulitis of left lower limb; I13.2 Hypertensive heart and chronic kidney disease with heart failure and with stage 5 chronic kidney disease, or end stage renal disease; I07.1 Rheumatic tricuspid insufficiency; F01.50 Vascular dementia, unspecified severity, without behavioral disturbance, psychotic disturbance, mood disturbance, and anxiety; D50.9 Iron deficiency anemia, unspecified; B86 Scabies; E11.22 Type 2 diabetes mellitus with diabetic chronic kidney disease; E78.00 Pure hypercholesterolemia, unspecified; I25.10 Atherosclerotic heart disease of native coronary artery without angina pectoris; I87.2 Venous insufficiency (chronic) (peripheral); K59.00 Constipation, unspecified; N40.1 Benign prostatic hyperplasia with lower urinary tract symptoms; R31.0 Gross hematuria; E11.65 Type 2 diabetes mellitus with hyperglycemia; E86.0 Dehydration; E87.5 Hyperkalemia; Z68.28 Body mass index [BMI] 28.0-28.9, adult; Z79.4 Long term (current) use of insulin; Z79.82 Long term (current) use of aspirin; Z86.718 Personal history of other venous thrombosis and embolism; Z86.73 Personal history of transient ischemic attack (TIA), and cerebral infarction without residual deficits; Z87.11 Personal history of peptic ulcer disease; Z99.2 Dependence on renal dialysis; Z86.74 Personal history of sudden cardiac arrest
CPT/HCPCS: 32555; 36245; 36556; 71250; 76770; 76937; 76942; 82306; 82465; 82570; 82728; 82945; 82962; 83540; 83550; 83615; 83735; 83970; 83986; 84100; 84145; 84156; 84157; 84166; 84300; 84540; 87015; 87040; 87070; 87081; 87086; 87101; 87205; 87340; 88108; 89050; 89051; 90935; 93005; 93306; 94640; 96365; 96375; 97110; 97116; 97162; 97530; 99285; J1644; J1756; J1815; J1956; J2597; J3370; J3490; J7030; J7040; J7050; J7060; P9047